=== PATIENT | female | born 1975 | race Asian ===

== ENCOUNTER → 2017-01-19 | Outpatient (CLI) | payer BC ==
[~2017-01-19] MED LIST: LAMO100T16 PO; LAMO200T38 PO; PRENTAB26 PO
== END | disposition home or self-care (01) ==
LOC: C.LAB1850 08:04
PROVIDERS: ATTEND Obstetrics & Gynecology
DX: Z31.41 Encounter for fertility testing (principal)

== ENCOUNTER → 2017-02-20 | Outpatient (CLI) | payer BC ==
--- NOTE | 2017-02-20 19:51 | DIAGNOSTIC IMAGING REPORT ---
RIGHT KNEE 2 VIEWS CLINICAL HISTORY: Right knee pain. FINDINGS: AP and crosstable lateral views of the right knee are obtained. No prior studies are available for comparison at the time of dictation. The skeletal structures are well mineralized. No fracture is seen. The joint spaces of the knee are preserved. There are tiny patellar enthesophytes. A small joint effusion is suspected. An ossific density seen posteriorly on the lateral view may represent a calcified joint body. Prepatellar soft tissue swelling is noted. IMPRESSION: 1. Soft tissue swelling and small joint effusion. No acute bony abnormality is seen. 2. Question a small calcified joint body. Electronically signed by: Kasi Turner M.D. 02/20/2017 7:49 PM Dictated Date/Time: 02/20/2017 7:48 PM
== END | disposition home or self-care (01) ==
LOC: C.RAD 17:41
PROVIDERS: ATTEND Family Medicine
DX: M25.569 Pain in unspecified knee (principal)

== ENCOUNTER → 2017-05-04 | Outpatient (CLI) | payer BC ==
--- NOTE | 2017-05-05 12:25 | MAMMOGRAPHY REPORT ---
BILATERAL DIGITAL SCREENING MAMMOGRAM TOMOSYNTHESIS WITH CAD: 05/04/2017 CLINICAL HISTORY: Routine screening. Patient has no complaints. TECHNIQUE: Breast tomosynthesis in addition to standard 2D mammography was performed. Current study was also evaluated with a Computer Aided Detection (CAD) system. COMPARISON: Comparison is made to exams dated: 03/02/2016 ultrasound and 03/02/2016 mammogram - [facility]. BREAST COMPOSITION: The tissue of both breasts is heterogeneously dense, which may obscure small mas ses. FINDINGS: No suspicious masses, calcifications, or areas of architectural distortion are noted in ei ther breast. There has been no significant interval change compared to prior exams. IMPRESSION: ACR BI-RADS CATEGORY 1: NEGATIVE There is no mammographic evidence of malignancy. A 1 year screening mammogram is recommended. The pa tient will receive written notification of the results. Approximately 10% of breast cancers are not detected with mammography. A negative mammographic report should not delay biopsy if a clinically suggestive mass is present. Tuyet Gold M.D. ah/:05/05/2017 07:35:41 Accident Report Clerk: Krista BARDALES(R)(M), [facility] letter sent: Normal 1/2 BI-RADS Code: ACR BI-RADS Category 1: Negative
== END | disposition home or self-care (01) ==
LOC: C.MAMM 16:42
PROVIDERS: ATTEND Family Medicine
DX: Z12.31 Encounter for screening mammogram for malignant neoplasm of breast (principal)

== ENCOUNTER → 2017-07-17 | Outpatient (CLI) | payer BC | END | disposition home or self-care (01) | LOC: C.LAB1850 17:08 | PROVIDERS: ATTEND Obstetrics & Gynecology | DX: Z32.00 Encounter for pregnancy test, result unknown (principal) ==

== ENCOUNTER → 2017-08-16 | Outpatient (CLI) | payer BC | END | disposition home or self-care (01) | LOC: C.PAPS 16:29 | PROVIDERS: ATTEND Obstetrics & Gynecology | DX: Z01.419 Encounter for gynecological examination (general) (routine) without abnormal findings (principal); Z11.51 Encounter for screening for human papillomavirus (HPV) ==

== ENCOUNTER → 2017-09-09 | Outpatient (CLI) | payer BC ==
[2017-09-09 08:09] LABS: BASO % 0.5 %; BASO ABS # 0.04 K/uL (0-0.2); COMPLETE YES; EOS % 3.3 %; IG% 0.5 %; LYMPH % 23.9 %; LYMPH ABS # 2.03 K/uL (1.2-3.4); MEAN CELL VOLUME 90.9 fL (80-100); MEAN CORPUSCULAR HEMOGLOBIN 30.7 pg (25-34); MEAN CORPUSCULAR HGB CONC 33.8 g/dl (32-36); MEAN PLATELET VOLUME 9.6 fL (7.4-10.4); NEUT % 65.8 %; PLATELET COUNT 255 K/uL (130-400); WHITE BLOOD COUNT 8.48 K/uL (4.8-10.8)
[2017-09-09 08:43] LABS: ALT/SGPT 28 U/L (12-78); BLOOD UREA NITROGEN 12 mg/dl (7-18); CALCIUM 9.3 mg/dl (8.5-10.1); CARBON DIOXIDE 27 mmol/L (21-32); CHLORIDE 106 mmol/L (98-107); CREATININE 0.76 mg/dl (0.60-1.20); GLUCOSE 82 mg/dl (70-99); POTASSIUM 3.7 mmol/L (3.5-5.1); SODIUM 138 mmol/L (136-145)
[2017-09-09 08:46] LABS: ALKALINE PHOSPHATASE 67 U/L (45-117); AST/SGOT 19 U/L (15-37); RHEUMATOID FACTOR < 10.0 U/mL (0-15)
[2017-09-09 13:14] LABS: LYME DISEASE AB IGG NEG (NEG); LYME DISEASE AB IGM NEG (NEG)
== END | disposition home or self-care (01) ==
LOC: C.LAB 07:46
PROVIDERS: ATTEND Psychiatry & Neurology Neurology
DX: Z51.81 Encounter for therapeutic drug level monitoring (principal); M25.569 Pain in unspecified knee

== ENCOUNTER → 2017-11-07 | Outpatient (CLI) | payer BC, OTHER ==
[~2017-11-07] MED LIST changes: +LAMO200T35 PO; -LAMO200T38 PO
--- NOTE | 2017-11-07 16:54 | DIAGNOSTIC IMAGING REPORT ---
CERVICAL SPINE 4 OR 5 VIEWS CLINICAL HISTORY: LEFT HAND NUMBNESS COMPARISON STUDY: No previous studies for comparison. FINDINGS: The prevertebral soft tissues are normal. No fractures or subluxations are visualized. The bony neural foramina are widely patent bilaterally. There are no erosive or destructive changes. There is a mild spinal curvature convex to the left. There are very minor degenerative changes. IMPRESSION: Very minor degenerative change. No fractures or subluxations identified. No evidence of bony foraminal stenosis. Electronically signed by: John Saleem M.D. 11/07/2017 4:53 PM Dictated Date/Time: 11/07/2017 4:52 PM
== END | disposition home or self-care (01) ==
LOC: C.RDSM 15:10
PROVIDERS: ATTEND Internal Medicine
DX: R20.0 Anesthesia of skin (principal)